=== PATIENT | female | born 1985 | race Caucasian/White ===

== ENCOUNTER 2022-06-21 03:21 | Inpatient (IN) | payer OTHER ==
[~2022-06-21] VITALS: Ht 149.9 cm; Wt 56.7 kg
[~2022-06-21 03:21] MED LIST: COLACE 100MG C100 MG PO; FEOSOL325 MG PO; IBUPROFEN600 MG PO; K-DUR TAB 10 M10 MEQ PO; LABETALOL HCL200 MG PO; LORTAB 5-325 M1 EACH PO; UROCIT-K10 MEQ PO; VENTOLIN HFA 66.7 GM INH
[2022-06-21 04:02] LABS: HEMOGLOBIN 10.8 gm/dl (12.3-15.3); RED BLOOD COUNT 3.92 M/UL (4.00-5.10); WHITE BLOOD COUNT 16.4 K/UL (4.5-11.0)
[2022-06-21 05:19] LABS: BUN/CREATININE RATIO 9 (0-10)
[2022-06-21] MEDS ORDERED: HEMOCYTE324 MG PO (09:03)
[2022-06-21] MEDS ORDERED: IBUPROFEN800 MG PO (09:03)
[2022-06-21] MEDS ORDERED: HYDROCODON-ACE1 EAC2 PO (09:03)
[2022-06-21] MEDS ORDERED: COLACE 100MG C100 MG PO (09:03)
== END 2022-06-23 12:10 | disposition home or self-care (01) | DRG 786 ==
LOC: GENOP 03:21 → OB 03:30
PROVIDERS: Obstetrics & Gynecology; ADMIT Obstetrics & Gynecology
PROC: 4A1HXCZ Monitoring of Products of Conception, Cardiac Rate, External Approach (ICD-10-PCS; 2022-06-21)
PROC: 10D00Z1 Extraction of Products of Conception, Low, Open Approach (ICD-10-PCS; principal; 2022-06-21 04:10)
DX: O76 Abnormality in fetal heart rate and rhythm complicating labor and delivery (principal); O60.14X0 Preterm labor third trimester with preterm delivery third trimester, not applicable or unspecified; O99.324 Drug use complicating childbirth; D62 Acute posthemorrhagic anemia; Z3A.36 36 weeks gestation of pregnancy; Z37.0 Single live birth; O14.14 Severe pre-eclampsia complicating childbirth; O99.344 Other mental disorders complicating childbirth; F41.9 Anxiety disorder, unspecified; F32.A Depression, unspecified; F15.10 Other stimulant abuse, uncomplicated; Z28.310 Unvaccinated for COVID-19; Z83.3 Family history of diabetes mellitus; Z82.49 Family history of ischemic heart disease and other diseases of the circulatory system; O99.02 Anemia complicating childbirth; O62.2 Other uterine inertia
CPT/HCPCS: 80053; 80307; 82570; 82800; 83735; 84156; 85014; 85018; 85025; C9113; J0360; J0690; J1170; J1200; J2590; J2704; J3475